=== PATIENT | male | born 1960 | race Hispanic/Latino ===

== ENCOUNTER → 2017-12-10 | Outpatient (CLI) | payer OTHER | END | disposition home or self-care (01) | LOC: RAH 10:43 | PROVIDERS: ATTEND Family Medicine | DX: M65.811 Other synovitis and tenosynovitis, right shoulder (principal); M19.011 Primary osteoarthritis, right shoulder; M75.101 Unspecified rotator cuff tear or rupture of right shoulder, not specified as traumatic | CPT/HCPCS: 73221 ==

== ENCOUNTER → 2019-01-16 | Outpatient (CLI) | payer OTHER ==
[~2019-01-16] MED LIST: ALBUTEROL IH; ASPI-555 PO; BUDE10.2 IH; CEPH500B PO; GABA-531 PO; HYDR-4457 PO; HYPROMELLOSE OU; ISOS30TA6 PO; LEVE750T10 PO; LISI-617 PO; MELO-108 PO; OMEP-50 PO; POTA25TA13 PO; PYRI50TA15 PO; SIMV10TA6 PO; TAMS-1 PO; TOPI100T37 PO; VITA100049 PO; VITA1CAP85 PO
== END | disposition home or self-care (01) ==
LOC: SHCH 11:00
PROVIDERS: ATTEND Internal Medicine Cardiovascular Disease
DX: I25.10 Atherosclerotic heart disease of native coronary artery without angina pectoris (principal); R42 Dizziness and giddiness; R53.83 Other fatigue; I51.7 Cardiomegaly
CPT/HCPCS: 93306

== ENCOUNTER 2020-08-08 05:38 | Day surgery (SDC) | payer OTHER ==
[2020-08-03 10:40] VITALS: BP 118/74
[2020-08-03 11:12] LABS: BASOPHILS % (AUTO) 0.7 % (0.0-5.0); EOSINOPHILS % (AUTO) 1.3 % (0.0-8.0); HEMATOCRIT 43.9 % (42-54); LYMPHOCYTES % (AUTO) 31.8 % (21.0-51.0); MEAN CORPUSCULAR HEMOGLOBIN 31.8 pg (27.0-33.0); MEAN CORPUSCULAR HGB CONC 34.6 g/dL (32.0-36.0); MEAN CORPUSCULAR VOLUME 91.8 fL (79-99); MONOCYTES % (AUTO) 5.5 % (3.0-13.0); NEUTROPHILS % (AUTO) 60.2 % (40.0-77.0); PLATELET COUNT (AUTO) 233 K/uL (130-400); RED BLOOD CELL COUNT(AUTO) 4.78 MIL/uL (4.50-6.20); RED CELL DISTRIBUTION WIDTH 12.2 % (11.0-15.5)
[2020-08-03 11:46] LABS: CREATININE 1.1 mg/dL (0.5-1.5); POTASSIUM 3.8 mmol/L (3.5-5.1)
[~2020-08-08] VITALS: Ht 177.8 cm; Wt 110.8 kg
[2020-08-08] VITALS (17 sets, daily range): BP systolic 101–124; BP diastolic 65–83
[~2020-08-08 05:38] MED LIST changes: -ASPI-555 PO; +ASPI-556 PO; -BUDE10.2 IH; -CEPH500B PO; -HYDR-4457 PO; -ISOS30TA6 PO; +ISOS30TA92 PO; +LATA7.5D OU; -LISI-617 PO; +LISI5TAB21 PO; -OMEP-50 PO; +OMEP20CA12 PO; -SIMV10TA6 PO; +SIMV10TA97 PO; +TRAM50TA4 PO
[2020-08-08] MEDS: CEFAZOLIN SODIUM 1 GM VIAL IVP SCH ×2 (06:00→09:40)
[2020-08-08] MEDS ORDERED: LACTATED RINGERS 1000ML 1,000 ML IV ONE (07:05)
[2020-08-08] MEDS ORDERED: EPINEPHRINE 1 MG/ML 30ML VIAL IJ ONE (07:18)
[2020-08-08] MEDS ORDERED: ROCURONIUM 10MG/1ML SYR 10 MG/ML ML ONE (07:55)
[2020-08-08] MEDS ORDERED: LIDOCAINE PF 100MG/5ML (2%) SYRINGE 5ML ONE (07:55)
[2020-08-08] MEDS ORDERED: PROPOFOL 10 MG/ML 20ML VIAL IV ONE (07:55)
[2020-08-08] MEDS ORDERED: SUCCINYLCHOLINE CHLORIDE 20 MG/ML 10 ML VIAL ONE (07:55)
[2020-08-08] MEDS ORDERED: FENTANYL CITRATE PF 50 MCG/1 ML 2ML VIAL ONE (07:56)
[2020-08-08] MEDS ORDERED: ROPIVACAINE 0.5% 5MG/ML 30ML IJ ONE (08:56)
[2020-08-08] MEDS ORDERED: GLYCOPYRROLATE 1 MG/5 ML SYRINGE ONE ×2 (09:39→11:57)
[2020-08-08] MEDS ORDERED: PHENYLEPHRINE HCL 10 MG/ML 1ML VIAL IV ONE ×2 (10:03→10:04)
[2020-08-08] MEDS ORDERED: 0.9%NACL 10ML VIAL ONE (10:03)
[2020-08-08] MEDS ORDERED: KETOROLAC 30MG VIAL (30MG/ML) ONE (11:48)
[2020-08-08] MEDS ORDERED: ONDANSETRON 4MG INJ ONE (11:49)
[2020-08-08] MEDS ORDERED: MEPERIDINE-PF 25 MG/ML SYG ONE (11:50)
[2020-08-08] MEDS ORDERED: NEOSTIGMINE 5MG/5ML SYR IV ONE (11:57)
[2020-08-08] MEDS ORDERED: CEPH500B PO (12:26)
[2020-08-08] MEDS ORDERED: HYDR-4457 PO (12:26)
[2020-10-13] MEDS ORDERED: POTA-202 PO (18:40)
[2020-10-14] MEDS ORDERED: VERA180T61 PO (11:46)
== END 2020-08-08 13:50 | disposition home or self-care (01) ==
LOC: DAH 05:38
PROVIDERS: ATTEND Orthopaedic Surgery
DX: S46.012A Strain of muscle(s) and tendon(s) of the rotator cuff of left shoulder, initial encounter (principal); M19.012 Primary osteoarthritis, left shoulder; Z20.828 Contact with and (suspected) exposure to other viral communicable diseases; M75.42 Impingement syndrome of left shoulder; M75.22 Bicipital tendinitis, left shoulder; G89.29 Other chronic pain; M25.512 Pain in left shoulder; M25.619 Stiffness of unspecified shoulder, not elsewhere classified; J45.909 Unspecified asthma, uncomplicated; I25.2 Old myocardial infarction; K21.9 Gastro-esophageal reflux disease without esophagitis; E66.9 Obesity, unspecified; R56.9 Unspecified convulsions; E78.2 Mixed hyperlipidemia; Z98.890 Other specified postprocedural states; Z79.899 Other long term (current) drug therapy; Z90.49 Acquired absence of other specified parts of digestive tract; Z79.82 Long term (current) use of aspirin; Z68.35 Body mass index [BMI] 35.0-35.9, adult; Z80.0 Family history of malignant neoplasm of digestive organs; Z80.42 Family history of malignant neoplasm of prostate; Z83.3 Family history of diabetes mellitus; Z82.49 Family history of ischemic heart disease and other diseases of the circulatory system; Z83.511 Family history of glaucoma; Z80.3 Family history of malignant neoplasm of breast; Z82.0 Family history of epilepsy and other diseases of the nervous system; X58.XXXA Exposure to other specified factors, initial encounter; Y92.89 Other specified places as the place of occurrence of the external cause; Y99.0 Civilian activity done for income or pay
CPT/HCPCS: 29824; 29826; 29827; 36415; 64415; 76942; 80048; 85025; A4215; A4221; A4222; A4223; A4565; A4600; A4649 ×5; A4663; A4930; A5120; A6204; C1713; C9803; G0168; J0171; J0330; J0690; J1885; J2001; J2175; J2370; J2405; J2704; J2710; J2795; J3010; J3490 ×2; J7030; J7120; U0003

== ENCOUNTER 2020-09-01 13:09 | Observation (INO) | payer OTHER ==
[~2020-09-01] VITALS: Ht 177.8 cm; Wt 113.4 kg
[~2020-09-01 13:09] MED LIST changes: +CEPH500B PO; +HYDR-4457 PO; -TRAM50TA4 PO
[2020-09-01 13:34] LABS: BASOPHILS % (AUTO) 0.6 % (0.0-5.0); EOSINOPHILS % (AUTO) 1.8 % (0.0-8.0); LYMPHOCYTES % (AUTO) 29.7 % (21.0-51.0); MEAN CORPUSCULAR HEMOGLOBIN 32.2 pg (27.0-33.0); MEAN CORPUSCULAR HGB CONC 34.8 g/dL (32.0-36.0); MEAN CORPUSCULAR VOLUME 92.7 fL (79-99); MONOCYTES % (AUTO) 5.5 % (3.0-13.0); NEUTROPHILS % (AUTO) 61.9 % (40.0-77.0); PLATELET COUNT (AUTO) 209 K/uL (130-400); RED BLOOD CELL COUNT(AUTO) 4.53 MIL/uL (4.50-6.20); RED CELL DISTRIBUTION WIDTH 11.9 % (11.0-15.5); WHITE BLOOD COUNT (AUTO) 6.5 K/uL (4.8-10.8)
[2020-09-01 13:48] LABS: ALBUMIN 4.1 g/dL (3.5-5.0); BILIRUBIN,TOTAL 0.3 mg/dL (0.2-1.0); CREATININE 1.3 mg/dL (0.5-1.5); POTASSIUM 3.8 mmol/L (3.5-5.1); TOTAL PROTEIN, SERUM 7.2 g/dL (6.0-8.3)
[2020-09-01] MEDS ORDERED: ASPIRIN 325 MG TABLET ONE (15:10)
[2020-09-01] MEDS ORDERED: NITROGLYCERIN 1GM OINT 1 INCH/1GM TD ONE (15:10)
[2020-09-01] MEDS ORDERED: MORPHINE 2 MG SYG IV PRN (16:30)
[2020-09-01] MEDS ORDERED: ONDANSETRON 4MG INJ IV PRN (16:30)
[2020-09-01] MEDS ORDERED: ACETAMINOPHEN 325 MG TAB PO PRN ×2 (16:30)
[2020-09-01] MEDS ORDERED: NITROGLYCERIN 0.4 MG SL TAB SL PRN (16:45)
[2020-09-01 17:00] LABS: CHOLESTEROL 132 mg/dL (<200); HDL CHOLESTEROL 46 mg/dL (29-71); LDL DIRECT 68 mg/dL (0-99); TRIGLYCERIDES 197 mg/dL (30-200)
[2020-09-01] MEDS ORDERED: FAMOTIDINE 20MG VIAL IV ONE (20:27)
[2020-09-01] MEDS ORDERED: ATORVASTATIN 20 MG TABLET ONE (20:27)
[2020-09-01] MEDS: FAMOTIDINE 20MG VIAL IV SCH (21:00)
[2020-09-01] MEDS ORDERED: ATORVASTATIN 40 MG TABLET PO SCH (21:00)
[2020-09-01 21:15] VITALS: BP 139/95
[2020-09-01] MEDS: METOPROLOL TARTRATE 25 MG TAB PO SCH (21:22)
[2020-09-02 00:07] VITALS: BP 116/74
[2020-09-02 01:44] LABS: AMPHET/METH SCREEN,URINE NEGATIVE (NEGATIVE); BARBITURATE SCREEN, URINE NEGATIVE (NEGATIVE); BENZODIAZEPINES SCREEN,URINE NEGATIVE (NEGATIVE); CANNABINOID SCREEN,URINE NEGATIVE (NEGATIVE); COCAINE SCREEN,URINE NEGATIVE (NEGATIVE); OPIATE SCREEN,URINE NEGATIVE (NEGATIVE); PHENCYCLIDINE SCREEN,URINE NEGATIVE (NEGATIVE)
[2020-09-02 03:20] VITALS: BP 123/77
[2020-09-02 03:54] LABS: BASOPHILS % (AUTO) 0.9 % (0.0-5.0); EOSINOPHILS % (AUTO) 2.3 % (0.0-8.0); HEMATOCRIT 38.1 % (42-54); MEAN CORPUSCULAR HEMOGLOBIN 31.2 pg (27.0-33.0); MEAN CORPUSCULAR HGB CONC 33.9 g/dL (32.0-36.0); MONOCYTES % (AUTO) 5.3 % (3.0-13.0); PLATELET COUNT (AUTO) 210 K/uL (130-400); RED BLOOD CELL COUNT(AUTO) 4.14 MIL/uL (4.50-6.20); RED CELL DISTRIBUTION WIDTH 12.1 % (11.0-15.5); WHITE BLOOD COUNT (AUTO) 6.4 K/uL (4.8-10.8)
[2020-09-02 04:16] LABS: ALBUMIN 3.7 g/dL (3.5-5.0); BILIRUBIN,TOTAL 0.5 mg/dL (0.2-1.0); CREATININE 1.1 mg/dL (0.5-1.5); POTASSIUM 3.7 mmol/L (3.5-5.1); TOTAL PROTEIN, SERUM 6.7 g/dL (6.0-8.3)
[2020-09-02 08:00] VITALS: BP 141/101
[2020-09-02] MEDS: FAMOTIDINE 20MG VIAL IV SCH (08:06)
[2020-09-02] MEDS: METOPROLOL TARTRATE 25 MG TAB PO SCH (08:07)
[2020-09-02] MEDS ORDERED: ENOXAPARIN SODIUM 40 MG/0.4 ML SYRINGE SQ SCH (09:00)
[2020-09-02] MEDS ORDERED: LISINOPRIL 5 MG TABLET PO SCH (09:00)
[2020-09-02 10:18] VITALS: BP 141/101
[2020-09-02 11:11] LABS: PHOSPHORUS 3.9 mg/dL (2.5-4.9); THYROID STIMULATING HORMONE 1.01 uIU/mL (0.36-3.74)
[2020-09-02] MEDS ORDERED: ATOR40TA69 PO (13:03)
[2020-09-02] MEDS ORDERED: LISI5TAB21 PO (13:03)
[2020-09-02] MEDS ORDERED: METO25 PO (13:03)
[2020-10-13] MEDS ORDERED: POTA-202 PO (18:40)
[2020-10-14] MEDS ORDERED: VERA180T61 PO (11:46)
== END 2020-09-02 15:15 | disposition home or self-care (01) ==
LOC: EDH 13:09 → EDHIP 13:10 → 4DH 21:08
PROVIDERS: ADMIT Internal Medicine; ATTEND Internal Medicine
DX: R07.89 Other chest pain (principal); I47.2 Ventricular tachycardia; E66.01 Morbid (severe) obesity due to excess calories; I10 Essential (primary) hypertension; E78.5 Hyperlipidemia, unspecified; G40.909 Epilepsy, unspecified, not intractable, without status epilepticus; I25.2 Old myocardial infarction; J45.909 Unspecified asthma, uncomplicated; E78.00 Pure hypercholesterolemia, unspecified; Z87.891 Personal history of nicotine dependence; Z90.49 Acquired absence of other specified parts of digestive tract; Z79.82 Long term (current) use of aspirin; Z79.899 Other long term (current) drug therapy; Z91.018 Allergy to other foods; Z68.35 Body mass index [BMI] 35.0-35.9, adult
CPT/HCPCS: 36415 ×2; 71045; 80053 ×2; 80061; 80305; 82948; 83735; 84100; 84443; 84484 ×4; 85025 ×2; 85378; 93005 ×4; 93306; 93356; 96372; 96374; 99285; G0378 ×21; J1650; J3490 ×2

== ENCOUNTER 2020-10-10 13:45 | Emergency (ER) | payer OTHER ==
[~2020-10-10 13:45] MED LIST changes: +ATOR40TA69 PO; +LISI-809 PO; -LISI5TAB21 PO; +METO25 PO
[2020-10-10] MEDS ORDERED: ADENOSINE 3 MG/ML 2ML VIAL IV ONE (13:48)
[2020-10-10 14:36] LABS: BASOPHILS % (AUTO) 0.7 % (0.0-5.0); EOSINOPHILS % (AUTO) 2.2 % (0.0-8.0); HEMATOCRIT 43.5 % (42-54); LYMPHOCYTES % (AUTO) 35.9 % (21.0-51.0); MEAN CORPUSCULAR HEMOGLOBIN 31.3 pg (27.0-33.0); MEAN CORPUSCULAR HGB CONC 34.5 g/dL (32.0-36.0); MEAN CORPUSCULAR VOLUME 90.6 fL (79-99); MONOCYTES % (AUTO) 7.1 % (3.0-13.0); NEUTROPHILS % (AUTO) 53.9 % (40.0-77.0); PLATELET COUNT (AUTO) 218 K/uL (130-400); RED CELL DISTRIBUTION WIDTH 11.8 % (11.0-15.5); WHITE BLOOD COUNT (AUTO) 5.8 K/uL (4.8-10.8)
[2020-10-10 14:46] LABS: CREATININE 1.1 mg/dL (0.5-1.5); INR 1.02 (0.85-1.15); POTASSIUM 3.5 mmol/L (3.5-5.1); PROTHROMBIN TIME 11.1 SEC (9.6-11.6)
[2020-10-10 14:47] LABS: PARTIAL THROMBOPLASTIN TIME 27.2 SEC (26.3-35.5)
[2020-10-10 14:51] LABS: ALBUMIN 4.3 g/dL (3.5-5.0); BILIRUBIN,TOTAL 0.5 mg/dL (0.2-1.0); TOTAL PROTEIN, SERUM 7.4 g/dL (6.0-8.3)
[2020-10-10] MEDS ORDERED: DILTIAZEM HCL 120 MG CAP.SR.24H PO ONE (15:55)
[2020-10-10] MEDS ORDERED: PHENAZOPYRIDINE HCL 200 MG TABLET ONE (17:10)
[2020-10-10] MEDS ORDERED: SODIUM CHLORIDE 0.9% 1000ML 1,000 ML IV ONE (17:10)
[2020-10-10] MEDS ORDERED: CEFTRIAXONE SODIUM 1 GM ONE (17:10)
== END 2020-10-10 16:53 | disposition home or self-care (01) ==
LOC: EDH 13:45
DX: I47.1 Supraventricular tachycardia (principal); J45.909 Unspecified asthma, uncomplicated; E78.00 Pure hypercholesterolemia, unspecified; I10 Essential (primary) hypertension; I25.2 Old myocardial infarction
CPT/HCPCS: 36415; 71045; 80053; 82550; 84484; 85025; 85610; 85730; 93005 ×2; 96360; 99285; J0153; J0696; J7030

== ENCOUNTER 2020-10-13 08:49 | Observation (INO) | payer OTHER ==
[~2020-10-13] VITALS: Ht 177.8 cm; Wt 112.9 kg
[2020-10-13] MEDS ORDERED: ASPIRIN 325 MG TABLET ONE (09:01)
[2020-10-13 09:07] LABS: BASOPHILS % (AUTO) 0.4 % (0.0-5.0); EOSINOPHILS % (AUTO) 1.5 % (0.0-8.0); HEMATOCRIT 42.9 % (42-54); LYMPHOCYTES % (AUTO) 21.6 % (21.0-51.0); MEAN CORPUSCULAR HEMOGLOBIN 31.9 pg (27.0-33.0); MEAN CORPUSCULAR HGB CONC 35.2 g/dL (32.0-36.0); MEAN CORPUSCULAR VOLUME 90.7 fL (79-99); NEUTROPHILS % (AUTO) 71.1 % (40.0-77.0); PLATELET COUNT (AUTO) 189 K/uL (130-400); RED BLOOD CELL COUNT(AUTO) 4.73 MIL/uL (4.50-6.20); RED CELL DISTRIBUTION WIDTH 12.2 % (11.0-15.5); WHITE BLOOD COUNT (AUTO) 9.6 K/uL (4.8-10.8)
[2020-10-13 09:20] LABS: CREATININE 1.2 mg/dL (0.5-1.5); INR 0.99 (0.85-1.15); POTASSIUM 3.9 mmol/L (3.5-5.1); PROTHROMBIN TIME 10.8 SEC (9.6-11.6)
[2020-10-13 09:23] LABS: ALBUMIN 4.2 g/dL (3.5-5.0); BILIRUBIN,TOTAL 0.4 mg/dL (0.2-1.0); TOTAL PROTEIN, SERUM 7.2 g/dL (6.0-8.3)
[2020-10-13] MEDS ORDERED: SODIUM CHLORIDE 0.9% 1000ML 1,000 ML IV ONE ×2 (11:36→13:27)
[2020-10-13] MEDS ORDERED: ONDANSETRON HCL 4 MG/2 ML VIAL IV PRN (12:00)
[2020-10-13] MEDS ORDERED: ACETAMINOPHEN 325 MG TAB PO PRN ×2 (12:00)
[2020-10-13] MEDS ORDERED: LACTULOSE 20 GM/30 ML UDCUP PO PRN (12:00)
[2020-10-13 12:36] LABS: MAGNESIUM 2.1 mg/dL (1.80-2.40); THYROID STIMULATING HORMONE 1.3 uIU/mL (0.36-3.74)
[2020-10-13 17:56] VITALS: BP 110/64
[2020-10-13] MEDS ORDERED: DILT120C92 PO (18:40)
[2020-10-13] MEDS ORDERED: POTA20TA82 PO (18:40)
[2020-10-13] MEDS ORDERED: METOPROLOL TARTRATE 25 MG TAB PO SCH (21:00)
[2020-10-13] MEDS ORDERED: ATORVASTATIN CALCIUM 20 MG TABLET PO SCH (21:00)
[2020-10-13] MEDS: VERAPAMIL HCL 80 MG TABLET PO SCH (21:10)
[2020-10-13] MEDS: FAMOTIDINE 20MG TAB 20 MG TAB PO SCH (21:10)
[2020-10-13 23:07] VITALS: BP 109/67
[2020-10-14 03:26] VITALS: BP 112/68
[2020-10-14 05:04] LABS: BASOPHILS % (AUTO) 0.7 % (0.0-5.0); EOSINOPHILS % (AUTO) 3.7 % (0.0-8.0); MEAN CORPUSCULAR HEMOGLOBIN 31.2 pg (27.0-33.0); MEAN CORPUSCULAR HGB CONC 33.9 g/dL (32.0-36.0); MEAN CORPUSCULAR VOLUME 91.8 fL (79-99); MONOCYTES % (AUTO) 7.7 % (3.0-13.0); NEUTROPHILS % (AUTO) 47.4 % (40.0-77.0); PLATELET COUNT (AUTO) 178 K/uL (130-400); RED BLOOD CELL COUNT(AUTO) 4.14 MIL/uL (4.50-6.20); RED CELL DISTRIBUTION WIDTH 12.1 % (11.0-15.5); WHITE BLOOD COUNT (AUTO) 5.8 K/uL (4.8-10.8)
[2020-10-14 05:28] LABS: CREATININE 0.9 mg/dL (0.5-1.5); POTASSIUM 3.7 mmol/L (3.5-5.1)
[2020-10-14 08:00] VITALS: BP 127/59
[2020-10-14 08:22] VITALS: BP 127/59
[2020-10-14] MEDS: FAMOTIDINE 20MG TAB 20 MG TAB PO SCH (08:25)
[2020-10-14] MEDS ORDERED: ENOXAPARIN SODIUM 40 MG/0.4 ML SYRINGE SQ SCH (09:00)
[2020-10-14] MEDS ORDERED: ASPIRIN 325 MG TABLET PO SCH (09:00)
[2020-10-14] MEDS: VERAPAMIL HCL 80 MG TABLET PO SCH ×2 (09:02→14:41)
[2020-10-14] MEDS ORDERED: VERA180T12 PO (11:46)
[2020-10-14 11:52] VITALS: BP 107/64
[2020-10-14] MEDS ORDERED: ATOR40TA69 PO (12:02)
== END 2020-10-14 15:56 | disposition home or self-care (01) ==
LOC: EDH 08:49 → EDHIP 11:56 → 4CH 16:15
PROVIDERS: ADMIT Internal Medicine; ATTEND Internal Medicine
DX: I47.1 Supraventricular tachycardia (principal); R07.89 Other chest pain; I11.9 Hypertensive heart disease without heart failure; E87.0 Hyperosmolality and hypernatremia; I25.110 Atherosclerotic heart disease of native coronary artery with unstable angina pectoris; I25.2 Old myocardial infarction; E78.5 Hyperlipidemia, unspecified; E66.01 Morbid (severe) obesity due to excess calories; E78.00 Pure hypercholesterolemia, unspecified; G47.30 Sleep apnea, unspecified; J45.909 Unspecified asthma, uncomplicated; K21.9 Gastro-esophageal reflux disease without esophagitis; G40.909 Epilepsy, unspecified, not intractable, without status epilepticus; Z87.891 Personal history of nicotine dependence; Z90.49 Acquired absence of other specified parts of digestive tract; Z79.82 Long term (current) use of aspirin; Z79.899 Other long term (current) drug therapy; Z91.018 Allergy to other foods; Z68.35 Body mass index [BMI] 35.0-35.9, adult
CPT/HCPCS: 36415 ×2; 71045; 80048; 80053; 80061; 82550; 83735; 84443; 84484 ×3; 85025 ×2; 85610; 85730; 93005 ×3; 96372; 99285; G0378 ×28; J1650; J7030 ×2

== ENCOUNTER 2020-11-11 06:56 | Observation (INO) | payer OTHER ==
[2020-11-09 09:10] VITALS: BP 141/81
[2020-11-09 09:29] LABS: BASOPHILS % (AUTO) 0.9 % (0.0-5.0); EOSINOPHILS % (AUTO) 2.4 % (0.0-8.0); HEMATOCRIT 44.2 % (42-54); LYMPHOCYTES % (AUTO) 30.6 % (21.0-51.0); MEAN CORPUSCULAR HEMOGLOBIN 31.5 pg (27.0-33.0); MEAN CORPUSCULAR HGB CONC 34.4 g/dL (32.0-36.0); MEAN CORPUSCULAR VOLUME 91.5 fL (79-99); MONOCYTES % (AUTO) 6.8 % (3.0-13.0); NEUTROPHILS % (AUTO) 58.7 % (40.0-77.0); PLATELET COUNT (AUTO) 205 K/uL (130-400); RED BLOOD CELL COUNT(AUTO) 4.83 MIL/uL (4.50-6.20); RED CELL DISTRIBUTION WIDTH 12.2 % (11.0-15.5); WHITE BLOOD COUNT (AUTO) 6.8 K/uL (4.8-10.8)
[2020-11-09 09:37] LABS: CREATININE 1.1 mg/dL (0.5-1.5)
[2020-11-09 09:44] LABS: INR 1.03 (0.85-1.15); PROTHROMBIN TIME 11.2 SEC (9.6-11.6)
[2020-11-09 09:45] LABS: PARTIAL THROMBOPLASTIN TIME 26.5 SEC (26.3-35.5)
[2020-11-11] VITALS (9 sets, daily range): BP systolic 84–133; BP diastolic 52–82
[~2020-11-11] VITALS: Ht 177.8 cm; Wt 111.7 kg
[~2020-11-11 06:56] MED LIST changes: -CEPH500B PO; -METO25 PO; +POTA20TA82 PO; -POTA25TA13 PO; -SIMV10TA97 PO; +SODIUM CHLORIDE 0.9% 500ML 500 ML IV SCH; +VERA180T12 PO
[2020-11-11] MEDS ORDERED: SODIUM CHLORIDE 0.9% 1000ML 1,000 ML IV ONE (07:07)
[2020-11-11] MEDS ORDERED: MIDAZOLAM HCL 1 MG/ML 2ML VIAL ONE ×2 (12:16→15:06)
[2020-11-11] MEDS ORDERED: ISOPROTERENOL HCL 0.2 MG/ML AMP/VIAL/BAG ONE (12:16)
[2020-11-11] MEDS ORDERED: MEPERIDINE-PF 25 MG/ML SYG ONE ×2 (12:16→15:06)
[2020-11-11] MEDS ORDERED: LIDOCAINE HCL 2% 20ML ONE (12:16)
[2020-11-11] MEDS ORDERED: HEPARIN SODIUM 1000UNIT/ML 10ML VIAL ONE ×2 (12:16→14:49)
[2020-11-11] MEDS ORDERED: ALBUTEROL IH SCH ×2 (16:15→16:45)
[2020-11-11] MEDS ORDERED: HYPROMELLOSE OU SCH (16:15)
[2020-11-11] MEDS: TOPIRAMATE 100 MG TAB PO SCH (20:33)
[2020-11-11] MEDS: LEVETIRACETAM 500 MG TABLET PO SCH (20:34)
[2020-11-11] MEDS ORDERED: LATANOPROST 2.5 ML DROPS OU SCH (21:00)
[2020-11-11] MEDS ORDERED: TAMSULOSIN HCL 0.4 MG CAP.ER.24H PO SCH (21:00)
[2020-11-11] MEDS ORDERED: LEVETIRACETAM 1500 MG PO SCH (21:00)
[2020-11-11] MEDS ORDERED: NON-FORMULARY MEDICATION 1 EACH (Latanoprost/Pf (Latanoprost 0.005% Eye Drop) 1 DROP) OU SCH (21:00)
[2020-11-11] MEDS ORDERED: NON-FORMULARY MEDICATION 1 EACH (Omeprazole 20 MG) PO SCH (21:00)
[2020-11-11] MEDS ORDERED: ATORVASTATIN CALCIUM 40 MG TABLET PO SCH (21:00)
[2020-11-11] MEDS: PYRIDOXINE HCL 50 MG TABLET PO SCH (21:00)
[2020-11-12 04:00] VITALS: BP 123/68
[2020-11-12] MEDS: LEVETIRACETAM 500 MG TABLET PO SCH (08:07)
[2020-11-12] MEDS: PYRIDOXINE HCL 50 MG TABLET PO SCH (08:10)
[2020-11-12 08:45] VITALS: BP 125/76
[2020-11-12] MEDS ORDERED: NON-FORMULARY MEDICATION 1 EACH (Meloxicam 15 MG) PO SCH (09:00)
[2020-11-12] MEDS ORDERED: HYPROMELLOSE OU SCH (09:00)
[2020-11-12] MEDS ORDERED: VITAMIN E 1000 UNIT PO SCH (09:00)
[2020-11-12] MEDS ORDERED: POTASSIUM CHLORIDE 20 MEQ ERTAB PO SCH (09:00)
[2020-11-12] MEDS ORDERED: NON-FORMULARY MEDICATION 1 EACH (Vitamin E Mixed (Vitamin E) 1,000 UNIT) PO SCH (09:00)
[2020-11-12] MEDS ORDERED: LISINOPRIL 5 MG TABLET PO SCH (09:00)
[2020-11-12] MEDS ORDERED: ASPIRIN 325MG EC TAB 325 MG TABLET.DR PO SCH (09:00)
[2020-11-12] MEDS ORDERED: ISOSORBIDE MONO 30MG TAB SR PO SCH (09:00)
[2020-11-12] MEDS ORDERED: PANTOPRAZOLE SODIUM 40 MG TABLET.DR PO SCH (09:00)
[2020-11-12] MEDS ORDERED: MELOXICAM 7.5 MG TABLET PO SCH (09:00)
[2020-11-12] MEDS: TOPIRAMATE 100 MG TAB PO SCH (11:34)
[2020-11-12 12:53] VITALS: BP 132/76
== END 2020-11-12 14:05 | disposition home or self-care (01) ==
LOC: DAH 06:56 → DAHIP 06:57 → DAH 06:57 → 4CH 17:29
PROVIDERS: ADMIT Internal Medicine; ATTEND Internal Medicine
DX: I47.1 Supraventricular tachycardia (principal); R42 Dizziness and giddiness; K21.9 Gastro-esophageal reflux disease without esophagitis; G40.909 Epilepsy, unspecified, not intractable, without status epilepticus; N40.0 Benign prostatic hyperplasia without lower urinary tract symptoms; E78.5 Hyperlipidemia, unspecified; Z90.49 Acquired absence of other specified parts of digestive tract; Z79.82 Long term (current) use of aspirin; Z79.899 Other long term (current) drug therapy
CPT/HCPCS: 36415; 80048; 85025; 85610; 85730; 93005; 93462; 93613; 93621; 93623; 93653; 93662; 96360; 96361; A4215 ×2; A4216; A4222; A4223 ×3; A4606; A4649 ×2; A4663; C1730 ×4; C1732; C1893; C1894 ×6; G0378 ×22; J1644 ×3; J2175 ×2; J2250 ×2; J3490 ×2; J7030 ×2; 99156; 99157

== ENCOUNTER 2021-07-20 06:27 | Observation (INO) | payer OTHER ==
[2021-07-18 09:23] VITALS: BP 121/78
[2021-07-18 12:19] LABS: BASOPHILS % (AUTO) 0.8 % (0.0-5.0); EOSINOPHILS % (AUTO) 1.9 % (0.0-8.0); HEMATOCRIT 45.6 % (42-54); LYMPHOCYTES % (AUTO) 33.3 % (21.0-51.0); MEAN CORPUSCULAR HEMOGLOBIN 31.6 pg (27.0-33.0); MEAN CORPUSCULAR HGB CONC 35.1 g/dL (32.0-36.0); MEAN CORPUSCULAR VOLUME 89.9 fL (79-99); NEUTROPHILS % (AUTO) 57.6 % (40.0-77.0); PLATELET COUNT (AUTO) 240 K/uL (130-400); RED BLOOD CELL COUNT(AUTO) 5.07 MIL/uL (4.50-6.20); RED CELL DISTRIBUTION WIDTH 11.9 % (11.0-15.5); WHITE BLOOD COUNT (AUTO) 7.8 K/uL (4.8-10.8)
[2021-07-18 12:33] LABS: INR 1.01 (0.85-1.15)
[2021-07-18 12:35] LABS: PARTIAL THROMBOPLASTIN TIME 29.4 SEC (26.3-35.5)
[2021-07-18 12:53] LABS: CREATININE 1.1 mg/dL (0.5-1.5); POTASSIUM 3.7 mmol/L (3.5-5.1)
[2021-07-20] VITALS (9 sets, daily range): BP systolic 100–111; BP diastolic 63–80
[~2021-07-20] VITALS: Ht 177.8 cm; Wt 110.8 kg
[~2021-07-20 06:27] MED LIST changes: +ALBU8.5H8 IH; -ALBUTEROL IH; +BRIM10DR16 OU; +CARB-283 OU; -HYDR-4457 PO; -HYPROMELLOSE OU; -LISI-809 PO; +LISI5TAB21 PO; +MAGN400T40 PO; -MELO-108 PO; +POTA-202 PO; -POTA20TA82 PO; -SODIUM CHLORIDE 0.9% 500ML 500 ML IV SCH; -TOPI100T37 PO; +TOPI200T16 PO; -VERA180T12 PO; +VERA180T61 PO
[2021-07-20] MEDS ORDERED: 0.9%NACL 1000ML 1,000 ML IV ONE (07:16)
[2021-07-20] MEDS ORDERED: HEPARIN 10,000 UNIT/10ML (1,000 UNIT/ML) VIAL ONE ×2 (11:48→16:10)
[2021-07-20] MEDS ORDERED: MIDAZOLAM HCL 1 MG/ML 2ML VIAL ONE ×4 (11:48→15:40)
[2021-07-20] MEDS ORDERED: LIDOCAINE HCL 400MG/20ML VIAL ONE ×2 (11:48→11:49)
[2021-07-20] MEDS ORDERED: MEPERIDINE-PF 25 MG/ML SYG ONE ×5 (11:48→18:24)
[2021-07-20] MEDS ORDERED: ISOPROTERENOL HCL 0.2 MG/ML AMP/VIAL/BAG ONE ×2 (13:24→16:09)
[2021-07-20] MEDS ORDERED: LIDOCAINE HCL 1% MDV 50ML VIAL ONE (13:47)
[2021-07-20] MEDS ORDERED: IODIXANOL 320 MG/ML 100 ML VIAL ONE (14:18)
[2021-07-20] MEDS ORDERED: PROTAMINE SULFATE 10 MG/ML 25ML VIAL IV ONE (17:50)
[2021-07-20] MEDS ORDERED: IOHEXOL-350 50ML VIAL IV ONE (17:52)
[2021-07-20] MEDS ORDERED: APIX5TAB PO (18:59)
[2021-07-20] MEDS ORDERED: FLEC50TA3 PO (18:59)
[2021-07-20] MEDS ORDERED: ACETAMINOPHEN WITH CODEINE 1 TAB TAB PO PRN (19:00)
[2021-07-20] MEDS ORDERED: ALBUTEROL INHALER 90MCG/INH IH PRN (19:30)
[2021-07-20] MEDS ORDERED: DORZOLAMIDE OU SCH (21:00)
[2021-07-20] MEDS ORDERED: FLECAINIDE ACETATE 100 MG TABLET PO SCH (21:00)
[2021-07-20] MEDS ORDERED: BRIMONIDINE OU SCH (21:00)
[2021-07-20] MEDS ORDERED: TAMSULOSIN HCL 0.4 MG CAP.ER.24H PO SCH (21:00)
[2021-07-20] MEDS ORDERED: (Carboxymethylcellulose Sodium (Artificial Tears) 1 DROP) OU SCH (21:00)
[2021-07-20] MEDS ORDERED: ATORVASTATIN 40 MG TABLET PO SCH (21:00)
[2021-07-20] MEDS ORDERED: TOPIRAMATE 100 MG TAB PO SCH (21:00)
[2021-07-20] MEDS ORDERED: LATANOPROST 2.5 ML DROPS OU SCH (21:00)
[2021-07-20] MEDS ORDERED: 0.9% NACL 500ML IV.SOLN 500 ML IV ONE (21:17)
[2021-07-20] MEDS: PYRIDOXINE HCL 50 MG TABLET PO SCH (21:28)
[2021-07-20] MEDS: GABAPENTIN 300 MG CAPSULE PO SCH (21:28)
[2021-07-20] MEDS: LEVETIRACETAM 500 MG TABLET PO SCH (21:29)
[2021-07-20] MEDS ORDERED: 0.9% NACL 500ML IV.SOLN 500 ML IV SCH (21:30)
[2021-07-21 00:27] VITALS: BP 102/70
[2021-07-21 04:07] VITALS: BP 118/74
[2021-07-21 04:54] LABS: POTASSIUM 3.8 mmol/L (3.5-5.1)
[2021-07-21 07:02] VITALS: BP 119/78
[2021-07-21] MEDS: GABAPENTIN 300 MG CAPSULE PO SCH (08:24)
[2021-07-21] MEDS: LEVETIRACETAM 500 MG TABLET PO SCH (08:25)
[2021-07-21] MEDS: PYRIDOXINE HCL 50 MG TABLET PO SCH (08:25)
[2021-07-21] MEDS ORDERED: ISOSORBIDE MONO 30MG SR TAB PO SCH (09:00)
[2021-07-21] MEDS ORDERED: KCL 20 MEQ ERTAB PO SCH (09:00)
[2021-07-21] MEDS ORDERED: LISINOPRIL 5 MG TABLET PO SCH (09:00)
[2021-07-21] MEDS ORDERED: MAGNESIUM OXIDE 400 MG TABLET PO SCH (09:00)
[2021-07-21] MEDS ORDERED: PANTOPRAZOLE 40 MG TAB DR PO SCH (09:00)
[2021-07-21] MEDS ORDERED: VITAMIN E 400 UNIT CAPSULE PO SCH (09:00)
[2021-07-21] MEDS ORDERED: APIXABAN 5 MG TABLET PO SCH (09:00)
[2021-07-21] MEDS ORDERED: ASPIRIN 81 MG EC TAB PO SCH (09:00)
== END 2021-07-21 12:05 | disposition home or self-care (01) ==
LOC: DAH 06:27 → DAHIP 06:28 → DAH 18:48 → 4CH 19:30
PROVIDERS: ADMIT Internal Medicine; ATTEND Internal Medicine Cardiovascular Disease
DX: I47.1 Supraventricular tachycardia (principal); I10 Essential (primary) hypertension; E78.5 Hyperlipidemia, unspecified; G40.909 Epilepsy, unspecified, not intractable, without status epilepticus; N40.0 Benign prostatic hyperplasia without lower urinary tract symptoms; G47.33 Obstructive sleep apnea (adult) (pediatric); K21.9 Gastro-esophageal reflux disease without esophagitis; G89.29 Other chronic pain; M54.50 Low back pain, unspecified; E66.9 Obesity, unspecified; Z68.34 Body mass index [BMI] 34.0-34.9, adult; Z79.82 Long term (current) use of aspirin; Z79.899 Other long term (current) drug therapy; Z87.891 Personal history of nicotine dependence
CPT/HCPCS: 36415 ×2; 80048 ×2; 85025; 85610; 85730; 93005 ×2; 93462; 93613; 93621; 93623; 93653; 93662; A4215 ×2; A4216; A4221; A4222; A4223 ×3; A4606; A4649 ×2; A4663; C1730 ×4; C1732; C1760; C1893; C1894 ×8; G0378 ×17; J1644 ×4; J2175 ×5; J2250 ×4; J2720; J3490 ×5; J7030; J7040; Q9967 ×2; 99156; 99157

== ENCOUNTER → 2021-09-13 | Outpatient (CLI) | payer OTHER ==
[~2021-09-13] MED LIST changes: +APIX5TAB PO; +FLEC50TA3 PO; -VERA180T61 PO
== END | disposition home or self-care (01) ==
LOC: RAH 09:03
PROVIDERS: ATTEND Orthopaedic Surgery
DX: M23.342 Other meniscus derangements, anterior horn of lateral meniscus, left knee (principal)
CPT/HCPCS: 73721

== ENCOUNTER 2021-11-15 05:56 | Day surgery (SDC) | payer OTHER ==
[2021-11-13 11:15] LABS: CREATININE 1.1 mg/dL (0.5-1.5)
[2021-11-13 11:16] LABS: BASOPHILS % (AUTO) 0.7 % (0.0-5.0); HEMATOCRIT 44.5 % (42-54); LYMPHOCYTES % (AUTO) 26.9 % (21.0-51.0); MEAN CORPUSCULAR HEMOGLOBIN 31.5 pg (27.0-33.0); MEAN CORPUSCULAR HGB CONC 34.2 g/dL (32.0-36.0); MEAN CORPUSCULAR VOLUME 92.3 fL (79-99); MONOCYTES % (AUTO) 5.9 % (3.0-13.0); PLATELET COUNT (AUTO) 205 K/uL (130-400); RED BLOOD CELL COUNT(AUTO) 4.82 MIL/uL (4.50-6.20); RED CELL DISTRIBUTION WIDTH 12.3 % (11.0-15.5); WHITE BLOOD COUNT (AUTO) 5.9 K/uL (4.8-10.8)
[2021-11-14 10:06] VITALS: BP 95/66
[2021-11-15] VITALS (17 sets, daily range): BP systolic 107–150; BP diastolic 58–87
[~2021-11-15] VITALS: Ht 177.8 cm; Wt 112.1 kg
[~2021-11-15 05:56] MED LIST changes: -APIX5TAB PO; +FLEC100T3 PO; -FLEC50TA3 PO; -MAGN400T40 PO; +MELA1TAB28 PO
[2021-11-15] MEDS ORDERED: CEFAZOLIN SODIUM 1 GM VIAL ONE (06:55)
[2021-11-15] MEDS ORDERED: LACTATED RINGERS 1000ML 1,000 ML IV ONE (06:55)
[2021-11-15] MEDS ORDERED: CEFAZOLIN SODIUM 1 GM VIAL IVP ONE (08:00)
[2021-11-15] MEDS ORDERED: FAMOTIDINE 20MG VIAL IV ONE (08:00)
[2021-11-15] MEDS ORDERED: ROCURONIUM 10MG/1ML SYR 10 MG/ML ML ONE (08:14)
[2021-11-15] MEDS ORDERED: PROPOFOL 10 MG/ML 20ML VIAL IV ONE (08:14)
[2021-11-15] MEDS ORDERED: GLYCOPYRROLATE 1 MG/5 ML SYRINGE ONE (08:14)
[2021-11-15] MEDS ORDERED: FENTANYL CITRATE PF 50 MCG/1 ML 2ML VIAL ONE (08:14)
[2021-11-15] MEDS ORDERED: MIDAZOLAM HCL 1 MG/ML 2ML VIAL ONE (08:16)
[2021-11-15] MEDS ORDERED: ACET-2079 PO (08:52)
[2021-11-15] MEDS ORDERED: IBUP-2070 PO (08:52)
[2021-11-15] MEDS ORDERED: CEPH500B PO (08:52)
[2021-11-15] MEDS ORDERED: ONDANSETRON 4MG INJ ONE (09:06)
[2021-11-15] MEDS ORDERED: NEOSTIGMINE 5MG/5ML SYR IV ONE (09:25)
[2021-11-15] MEDS ORDERED: MEPERIDINE-PF 25 MG/ML SYG ONE ×2 (09:34→09:57)
== END 2021-11-15 11:35 | disposition home or self-care (01) ==
LOC: DAH 05:56
PROVIDERS: ATTEND Orthopaedic Surgery
DX: S83.282A Other tear of lateral meniscus, current injury, left knee, initial encounter (principal); M94.262 Chondromalacia, left knee; I10 Essential (primary) hypertension; E78.2 Mixed hyperlipidemia; J45.909 Unspecified asthma, uncomplicated; K21.9 Gastro-esophageal reflux disease without esophagitis; I25.10 Atherosclerotic heart disease of native coronary artery without angina pectoris; Z90.49 Acquired absence of other specified parts of digestive tract; Z98.890 Other specified postprocedural states; Z79.01 Long term (current) use of anticoagulants; Z79.82 Long term (current) use of aspirin; Z82.49 Family history of ischemic heart disease and other diseases of the circulatory system; Z83.3 Family history of diabetes mellitus; Z80.0 Family history of malignant neoplasm of digestive organs; Z80.42 Family history of malignant neoplasm of prostate; Z80.3 Family history of malignant neoplasm of breast; Z82.0 Family history of epilepsy and other diseases of the nervous system; Z83.511 Family history of glaucoma; Z79.899 Other long term (current) drug therapy; W19.XXXA Unspecified fall, initial encounter; Y93.89 Activity, other specified; Y92.89 Other specified places as the place of occurrence of the external cause
CPT/HCPCS: 29881; 36415; 80048; 85025; 87635; 93005; A4215; A4216; A4221; A4222; A4223; A4649; A4663; A4930; A5120; A6223; A6450; C9803; J0690; J2175 ×2; J2250; J2405; J2704; J2710; J3010; J3490 ×2; J7120

== ENCOUNTER 2021-12-17 20:05 | Emergency (ER) | payer OTHER ==
[~2021-12-17] VITALS: Ht 177.8 cm; Wt 115.2 kg
[~2021-12-17 20:05] MED LIST changes: +ACET-2079 PO; +CEPH500B PO; +IBUP-2070 PO
[2021-12-17 20:31] LABS: BASOPHILS % (AUTO) 0.6 % (0.0-5.0); EOSINOPHILS % (AUTO) 1.6 % (0.0-8.0); HEMATOCRIT 45.1 % (42-54); LYMPHOCYTES % (AUTO) 34.4 % (21.0-51.0); MEAN CORPUSCULAR HEMOGLOBIN 31.5 pg (27.0-33.0); MEAN CORPUSCULAR HGB CONC 34.8 g/dL (32.0-36.0); MEAN CORPUSCULAR VOLUME 90.4 fL (79-99); MONOCYTES % (AUTO) 6.6 % (3.0-13.0); NEUTROPHILS % (AUTO) 56.6 % (40.0-77.0); PLATELET COUNT (AUTO) 203 K/uL (130-400); RED BLOOD CELL COUNT(AUTO) 4.99 MIL/uL (4.50-6.20); WHITE BLOOD COUNT (AUTO) 6.2 K/uL (4.8-10.8)
[2021-12-17 20:36] LABS: POTASSIUM 3.4 mmol/L (3.5-5.1)
[2021-12-17 20:44] LABS: BILIRUBIN,TOTAL 0.5 mg/dL (0.2-1.0); MAGNESIUM 2.1 mg/dL (1.80-2.40)
[2021-12-17 21:49] VITALS: BP 104/65
[2021-12-21] MEDS ORDERED: CELE-84 PO (14:23)
== END 2021-12-17 22:50 | disposition home or self-care (01) ==
LOC: EDH 20:05
DX: I47.1 Supraventricular tachycardia (principal); J45.909 Unspecified asthma, uncomplicated; I10 Essential (primary) hypertension; Z91.018 Allergy to other foods; Z79.899 Other long term (current) drug therapy; Z79.82 Long term (current) use of aspirin; Z90.89 Acquired absence of other organs; Z98.890 Other specified postprocedural states
CPT/HCPCS: 36415; 80053; 83735; 85025; 93005

== ENCOUNTER → 2023-07-17 | Outpatient (CLI) | payer OTHER ==
[~2023-07-17] MED LIST changes: -ACET-2079 PO; -ALBU8.5H8 IH; -CEPH500B PO; -IBUP-2070 PO; +IPRAHFA IH; -MELA1TAB28 PO
== END | disposition home or self-care (01) ==
LOC: SHCH 12:54
PROVIDERS: ATTEND Internal Medicine Cardiovascular Disease
DX: I47.10 Supraventricular tachycardia, unspecified (principal)
CPT/HCPCS: 93306

== ENCOUNTER 2023-09-12 03:41 | Observation (INO) | payer OTHER ==
[~2023-09-12] VITALS: Ht 177.8 cm; Wt 119.0 kg
[2023-09-12] VITALS (8 sets, daily range): BP systolic 102–127; BP diastolic 67–82; PULSE 55–70; RESP 18; O2SAT 95–98
[2023-09-12 03:56] LABS: BASOPHILS # (AUTO) 0.04 K/uL (0.00-0.20); BASOPHILS % (AUTO) 0.7 % (0.0-5.0); EOSINOPHILS # (AUTO) 0.08 K/uL (0.00-0.70); EOSINOPHILS % (AUTO) 1.3 % (0.0-8.0); IMMATURE GRANULOCYTE ABSOLUTE 0.02 K/uL (0-1); LYMPHOCYTES # (AUTO) 1.8 K/uL (1.0-4.8); MEAN CORPUSCULAR HEMOGLOBIN 32.9 pg (27.0-33.0); MEAN CORPUSCULAR HGB CONC 36.1 g/dL (32.0-36.0); MEAN CORPUSCULAR VOLUME 91.1 fL (79-99); MONOCYTES # (AUTO) 0.5 K/uL (0.1-1.0); MONOCYTES % (AUTO) 8.1 % (3.0-13.0); NEUTROPHILS # (AUTO) 3.7 K/uL (1.8-7.7); NEUTROPHILS % (AUTO) 60.6 % (40.0-77.0); PLATELET COUNT (AUTO) 226 K/uL (130-400); RED CELL DISTRIBUTION WIDTH 11.5 % (11.0-15.5); WHITE BLOOD COUNT (AUTO) 6.1 K/uL (4.8-10.8)
[2023-09-12] MEDS ORDERED: ONDANSETRON 4MG INJ IV PRN (04:00)
[2023-09-12] MEDS ORDERED: MORPHINE 4 MG SYG IV PRN (04:00)
[2023-09-12] MEDS ORDERED: ACETAMINOPHEN 325 MG TAB PO PRN ×2 (04:00)
[2023-09-12 04:04] LABS: CREATININE 1.2 mg/dL (0.5-1.5); POTASSIUM 3.6 mmol/L (3.5-5.1)
[2023-09-12] MEDS ORDERED: MAGN400T51 PO (04:05)
[2023-09-12] MEDS ORDERED: FLUT16H NASAL (04:05)
[2023-09-12] MEDS ORDERED: MELA3TAB41 PO (04:05)
[2023-09-12] MEDS ORDERED: OMEP20TA20 PO (04:05)
[2023-09-12 04:09] LABS: ALBUMIN 3.9 g/dL (3.5-5.0); BILIRUBIN,TOTAL 0.5 mg/dL (0.2-1.0); TOTAL PROTEIN, SERUM 7.1 g/dL (6.0-8.3)
[2023-09-12 04:13] LABS: B-TYPE NATRIURETIC PEPTIDE 16 pg/mL (0-100)
[2023-09-12 04:18] LABS: INR 0.94 (0.85-1.15); PARTIAL THROMBOPLASTIN TIME 25.2 SEC (26.3-35.5); PROTHROMBIN TIME 10.1 SEC (9.6-11.6)
[2023-09-12] MEDS: NITROGLYCERIN 1GM OINT 1 INCH/1GM TD SCH (04:40)
[2023-09-12] MEDS: ASPIRIN 81MG CHEW TAB PO ONE (04:41)
[2023-09-12 06:00] LABS: APPEARANCE,URINE CLEAR (CLEAR); BILIRUBIN,URINE NEGATIVE (NEGATIVE); COLOR,URINE YELLOW (YELLOW); GLUCOSE, URINE (UA) NEGATIVE (NEGATIVE); KETONES,URINE NEGATIVE (NEGATIVE); LEUKOCYTE ESTERASE ,URINE NEGATIVE Leu/uL (NEGATIVE); NITRATE,URINE NEGATIVE (NEGATIVE); OCCULT BLOOD,URINE NEGATIVE (NEGATIVE); PH,URINE 6.5 (5.0-8.0); PROTEIN,URINE NEGATIVE (NEGATIVE); UROBILINOGEN,URINE 0.2 mg/dL (0.2-1.0)
[2023-09-12 06:01] LABS: ADD UA MICROSCOPIC NO
[2023-09-12] MEDS: FAMOTIDINE 20MG TAB PO SCH (09:06)
[2023-09-12] MEDS: ASPIRIN 81MG CHEW TAB PO SCH (09:06)
[2023-09-12] MEDS: ENOXAPARIN SODIUM 40 MG/0.4 ML SYRINGE SQ SCH (09:06)
[2023-09-12] MEDS: MORPHINE 2 MG SYG IV PRN (09:07)
[2023-09-12] MEDS ORDERED: IBUPROFEN 600 MG TABLET PO PRN (13:30)
[2023-09-12] MEDS ORDERED: FLUTICASONE PROPIONATE 50MCG/SPRAY 16 GM BOTTLE EN PRN (13:30)
[2023-09-12] MEDS: GABAPENTIN 300 MG CAPSULE PO SCH (13:56)
[2023-09-12] MEDS ORDERED: IPRATROPIUM BROMIDE IH PRN (14:00)
[2023-09-12] MEDS: DORZOLAMIDE OU SCH (14:07)
[2023-09-12] MEDS: BRIMONIDINE OU SCH (14:07)
[2023-09-12] MEDS ORDERED: IPRATROPIUM/ALBUTEROL SULFATE 3 ML SOLUTION IH SCH (17:00)
[2023-09-12] MEDS: IPRATROPIUM/ALBUTEROL SULFATE 3 ML SOLUTION IH ONE (17:01)
[2023-09-12] MEDS: CARBOXYMETHYLCELLULOSE SODIUM OU SCH (17:32)
[2023-09-12] MEDS: LATANOPROST OU SCH (21:00)
[2023-09-12] MEDS: LEVETIRACETAM 500 MG TABLET PO SCH (21:12)
[2023-09-12] MEDS: TAMSULOSIN HCL 0.4 MG CAP.ER.24H PO SCH (21:13)
[2023-09-12] MEDS: ATORVASTATIN 20 MG TABLET PO SCH (21:13)
[2023-09-12] MEDS: PYRIDOXINE HCL 50 MG TABLET PO SCH (21:13)
[2023-09-13 03:57] VITALS: BP 121/88; PULSE 73; RESP 18
[2023-09-13 05:09] LABS: BASOPHILS # (AUTO) 0.04 K/uL (0.00-0.20); BASOPHILS % (AUTO) 0.7 % (0.0-5.0); EOSINOPHILS # (AUTO) 0.14 K/uL (0.00-0.70); EOSINOPHILS % (AUTO) 2.4 % (0.0-8.0); HEMATOCRIT 39.3 % (42-54); IMMATURE GRANULOCYTE ABSOLUTE 0.02 K/uL (0-1); LYMPHOCYTES # (AUTO) 1.6 K/uL (1.0-4.8); LYMPHOCYTES % (AUTO) 27.3 % (21.0-51.0); MEAN CORPUSCULAR HEMOGLOBIN 32.1 pg (27.0-33.0); MEAN CORPUSCULAR HGB CONC 35.6 g/dL (32.0-36.0); MEAN CORPUSCULAR VOLUME 90.1 fL (79-99); MONOCYTES # (AUTO) 0.4 K/uL (0.1-1.0); MONOCYTES % (AUTO) 6.8 % (3.0-13.0); NEUTROPHILS # (AUTO) 3.6 K/uL (1.8-7.7); NEUTROPHILS % (AUTO) 62.5 % (40.0-77.0); PLATELET COUNT (AUTO) 216 K/uL (130-400); RED BLOOD CELL COUNT(AUTO) 4.36 MIL/uL (4.50-6.20); RED CELL DISTRIBUTION WIDTH 11.6 % (11.0-15.5); WHITE BLOOD COUNT (AUTO) 5.7 K/uL (4.8-10.8)
[2023-09-13 05:28] LABS: ALBUMIN 3.8 g/dL (3.5-5.0); BILIRUBIN,TOTAL 0.6 mg/dL (0.2-1.0); POTASSIUM 3.5 mmol/L (3.5-5.1); TOTAL PROTEIN, SERUM 6.8 g/dL (6.0-8.3)
[2023-09-13 08:00] VITALS: BP 144/93; PULSE 60; RESP 18
[2023-09-13] MEDS ORDERED: MAGNESIUM OXIDE 400 MG PO SCH (09:00)
[2023-09-13] MEDS: ISOSORBIDE MONO 30MG SR TAB PO SCH (09:11)
[2023-09-13] MEDS: MAGNESIUM OXIDE 400 MG TABLET PO SCH (09:12)
[2023-09-13] MEDS: LISINOPRIL 5 MG TABLET PO SCH (09:12)
[2023-09-13] MEDS: VITAMIN E MIXED 1000 UNIT PO SCH (09:16)
[2023-09-13 12:00] VITALS: BP 127/93; PULSE 68; RESP 20
[2023-09-13 16:09] VITALS: O2SAT 97
== END 2023-09-13 15:16 | disposition home or self-care (01) ==
LOC: EDH 03:41 → INTOOBSV 03:59 → EDHIP 03:59 → 4CH 04:24
PROVIDERS: ADMIT Internal Medicine; ATTEND Internal Medicine
DX: R07.9 Chest pain, unspecified (principal); I10 Essential (primary) hypertension; R56.9 Unspecified convulsions; J45.909 Unspecified asthma, uncomplicated; R00.2 Palpitations; I48.91 Unspecified atrial fibrillation; E66.9 Obesity, unspecified; I47.10 Supraventricular tachycardia, unspecified; I25.110 Atherosclerotic heart disease of native coronary artery with unstable angina pectoris; I25.2 Old myocardial infarction; G47.33 Obstructive sleep apnea (adult) (pediatric); Z86.73 Personal history of transient ischemic attack (TIA), and cerebral infarction without residual deficits; Z79.82 Long term (current) use of aspirin; Z68.37 Body mass index [BMI] 37.0-37.9, adult
CPT/HCPCS: 96374; 96372 ×2; 99285; 83735; 84484 ×4; 80053 ×2; 83880; 85025 ×2; 85378; 85610; 85730; 81003; 36415 ×2; 71045; 93005 ×2; 94640; J2270; J1650 ×2; G0378 ×6

== ENCOUNTER → 2023-10-28 | Outpatient (CLI) | payer OTHER ==
[~2023-10-28] MED LIST changes: -FLEC100T3 PO; +FLUT16H NASAL; +IOHEXOL 350 MG/ML 100ML INFUS..BTL IV ONE; +MAGN400T51 PO; +MELA3TAB41 PO; -OMEP20CA12 PO; +OMEP20TA20 PO; -TOPI200T16 PO
== END | disposition home or self-care (01) ==
LOC: RAH 08:18
PROVIDERS: ATTEND Internal Medicine Cardiovascular Disease
DX: R06.00 Dyspnea, unspecified (principal); Z82.49 Family history of ischemic heart disease and other diseases of the circulatory system
CPT/HCPCS: 75574; Q9967

== ENCOUNTER 2024-02-14 10:08 | Emergency (ER) | payer OTHER ==
[~2024-02-14] VITALS: Ht 177.8 cm; Wt 117.9 kg
[~2024-02-14 10:08] MED LIST changes: -IOHEXOL 350 MG/ML 100ML INFUS..BTL IV ONE; -VITA100049 PO; +VITA100059 PO
[2024-02-14 10:56] LABS: BASOPHILS # (AUTO) 0.03 K/uL (0.00-0.20); BASOPHILS % (AUTO) 0.4 % (0.0-5.0); EOSINOPHILS # (AUTO) 0.04 K/uL (0.00-0.70); EOSINOPHILS % (AUTO) 0.5 % (0.0-8.0); HEMATOCRIT 39.4 % (42-54); IMMATURE GRANULOCYTE ABSOLUTE 0.03 K/uL (0-1); LYMPHOCYTES # (AUTO) 1.3 K/uL (1.0-4.8); LYMPHOCYTES % (AUTO) 17.7 % (21.0-51.0); MEAN CORPUSCULAR HEMOGLOBIN 31.4 pg (27.0-33.0); MEAN CORPUSCULAR HGB CONC 35.5 g/dL (32.0-36.0); MEAN CORPUSCULAR VOLUME 88.3 fL (79-99); MONOCYTES # (AUTO) 0.8 K/uL (0.1-1.0); MONOCYTES % (AUTO) 10.4 % (3.0-13.0); NEUTROPHILS # (AUTO) 5.2 K/uL (1.8-7.7); NEUTROPHILS % (AUTO) 70.6 % (40.0-77.0); PLATELET COUNT (AUTO) 191 K/uL (130-400); RED BLOOD CELL COUNT(AUTO) 4.46 MIL/uL (4.50-6.20); RED CELL DISTRIBUTION WIDTH 12.2 % (11.0-15.5); WHITE BLOOD COUNT (AUTO) 7.4 K/uL (4.8-10.8)
[2024-02-14 11:07] LABS: CREATININE 1.1 mg/dL (0.5-1.3); POTASSIUM 3.8 mmol/L (3.5-5.1)
[2024-02-14 11:12] LABS: ALBUMIN 3.8 g/dL (3.5-5.0); BILIRUBIN,TOTAL 0.7 mg/dL (0.2-1.0); TOTAL PROTEIN, SERUM 7.3 g/dL (6.0-8.3)
[2024-02-14 11:32] LABS: SARS-CoV-2, RNA, NAAT POSITIVE SARS CoV-2 (NEGATIVE)
[2024-02-14 11:34] LABS: INFLUENZA TYPE A Negative For Type A (NEGATIVE); INFLUENZA TYPE B Negative For Type B (NEGATIVE)
[2024-02-14] MEDS: CEFTRIAXONE 1G VIAL IVPB ONE (12:17)
[2024-02-14] MEDS: AZITHROMYCIN 250 MG TABLET PO SCH (12:17)
[2024-02-14 12:25] LABS: ABG BASE EXCESS -2.9 mmol/L (-2.0-3.0); ABG HCO3 20.6 mmol/L (21.0-28.0); ABG OXYGEN SATURATION 98.5 % (95.0-99.0); ABG PCO2 33 mmHg (35-48); ABG PH 7.418 (7.35-7.450); VENT MODE, BG NC (ROOM AIR)
[2024-02-14] MEDS ORDERED: NIRMATRELVIR PO (13:19)
[2024-02-14] MEDS ORDERED: AZIT250T9 PO (13:19)
[2024-02-14] MEDS ORDERED: BENZ-39 PO (13:19)
[2024-02-14] MEDS ORDERED: RITO100T4 PO (13:19)
[2024-02-14 13:40] VITALS: BP 118/72; PULSE 74; RESP 16; O2SAT 98
== END 2024-02-14 14:14 | disposition home or self-care (01) ==
LOC: EDH 10:08
DX: U07.1 COVID-19 (principal); I25.10 Atherosclerotic heart disease of native coronary artery without angina pectoris; J45.909 Unspecified asthma, uncomplicated; E66.9 Obesity, unspecified; I10 Essential (primary) hypertension; Z79.82 Long term (current) use of aspirin; Z79.899 Other long term (current) drug therapy; Z91.018 Allergy to other foods
CPT/HCPCS: 99285; 96365; 71045; 87635; 84484; 80053; 82803; 83880; 85025; 87040 ×2; 87804 ×2; 36415; 93005; 36600; J0696

== ENCOUNTER → 2025-03-08 | Outpatient (CLI) | payer OTHER ==
[~2025-03-08] MED LIST changes: +AZIT250T9 PO; +BENZ-39 PO; +NIRMATRELVIR PO; +RITO100T4 PO; -TAMS-1 PO; +TAMS-55 PO
--- NOTE | 2025-03-08 17:00 | HMCIMG ---
EXAM: CT Chest Without Intravenous Contrast. CLINICAL HISTORY: Abnormal chest XRAY TECHNIQUE: Axial computed tomography images of the chest without intravenous contrast. Dose reduction technique was used including one or more of the following: automated exposure control, adjustment of mA and kV according to patient size, and/or iterative reconstruction. CONTRAST: NONE COMPARISON: None provided. FINDINGS: LUNGS: No pulmonary mass. No focal airspace consolidation. Negative for pulmonary nodule. PLEURAL SPACES: No pleural effusion. No pneumothorax. HEART AND MEDIASTINUM: No cardiomegaly. No significant pericardial effusion. LYMPH NODES: No lymphadenopathy. CHEST WALL AND UPPER ABDOMEN: The upper abdominal solid organs are unremarkable. The chest wall is unremarkable. BONES: No acute osseous abnormality. IMPRESSION: 1. No acute intra-thoracic abnormality. /S[place]ent
== END | disposition home or self-care (01) ==
LOC: RAH 11:57
PROVIDERS: ATTEND Internal Medicine Cardiovascular Disease
DX: R91.8 Other nonspecific abnormal finding of lung field (principal)
CPT/HCPCS: 71250

== ENCOUNTER 2025-05-04 10:47 | Day surgery (SDC) | payer OTHER ==
[~2025-05-04] VITALS: Ht 177.8 cm; Wt 117.0 kg
[2025-05-04] VITALS (12 sets, daily range): BP systolic 105–130; BP diastolic 73–86; PULSE 61–73; RESP 14–18; TEMP 97.5–99.7
[2025-05-04] MEDS ORDERED: ATOR10 PO (12:08)
[2025-05-04] MEDS ORDERED: TOPI-97 PO (12:09)
[2025-05-04] MEDS ORDERED: PYRIDOXINE PO (12:10)
[2025-05-04] MEDS ORDERED: FLEC100T3 PO (12:10)
[2025-05-04] MEDS: 0.9%NACL 1000ML 1,000 ML IV ONE (12:12)
[2025-05-04] MEDS ORDERED: LIDOCAINE PF 100MG/5ML (2%) SYRINGE 5ML ONE (12:52)
== END 2025-05-04 15:00 | disposition home or self-care (01) ==
LOC: DAH 10:47 → ENDO 10:47
PROVIDERS: ATTEND Internal Medicine Gastroenterology
DX: Z12.11 Encounter for screening for malignant neoplasm of colon (principal); D12.2 Benign neoplasm of ascending colon; K64.0 First degree hemorrhoids; I10 Essential (primary) hypertension; K21.9 Gastro-esophageal reflux disease without esophagitis; E66.9 Obesity, unspecified; I25.2 Old myocardial infarction; G47.30 Sleep apnea, unspecified; E78.5 Hyperlipidemia, unspecified; M19.90 Unspecified osteoarthritis, unspecified site; G43.909 Migraine, unspecified, not intractable, without status migrainosus; J45.909 Unspecified asthma, uncomplicated; Z80.0 Family history of malignant neoplasm of digestive organs; Z68.38 Body mass index [BMI] 38.0-38.9, adult; Z20.822 Contact with and (suspected) exposure to COVID-19; Z79.82 Long term (current) use of aspirin; Z79.899 Other long term (current) drug therapy
CPT/HCPCS: 45385; 88305; J7030; J2003; J2704 ×2; A4620; A4215 ×2; A4223; A4222; A4221; A4663; A4606; J3490